=== PATIENT | male | born 1970 | race Caucasian/White ===

== ENCOUNTER 2021-04-04 07:08 | Emergency (ER) | payer MEDICAID ==
[~2021-04-04] VITALS: Ht 170.2 cm; Wt 75.4 kg
[2021-04-04 08:34] LABS: HEMATOCRIT. 30.3 % (42.0-52.0); HEMOGLOBIN. 10.3 g/dL (14.0-18.0); MEAN CORPUSCULAR VOLUME 79.7 fL (80.0-94.0); MEAN PLATELET VOLUME 7.7 fl (7.4-10.4); PLATELET 245 x1000/uL (130-400); RED BLOOD CELL COUNT 3.81 mill/uL (4.7-6.1); RED CELL DISTRIBUTION WIDTH 14.7 % (11.6-14.6)
[2021-04-04 08:41] LABS: CHLORIDE 88 mEq/L (98-107)
[2021-04-04 08:44] LABS: INR 1.1
[2021-04-04 09:17] LABS: PLATELET ESTIMATE NORMAL
[2021-04-04 09:59] LABS: CLARITY URINE CLEAR (CLEAR); COLOR URINE DARK YELLOW (YELLOW); KETONES URINE NEGATIVE (NEGATIVE); LEUKOCYTE ESTERASE URINE TRACE (NEGATIVE); NITRITE URINE NEGATIVE (NEGATIVE); OCCULT BLOOD URINE NEGATIVE (NEGATIVE); PROTEIN URINE NEGATIVE (NEGATIVE); SPECIFIC GRAVITY URINE 1.014 (1.005-1.030)
[2021-04-04] MEDS ORDERED: SODIUM BICARBONATE 4% (2.4MEQ) 5ML VIAL IV ONE (10:00)
[2021-04-04] MEDS ORDERED: LIDOCAINE HCL 1% 20ML VIAL (Pyxis) INJ ONE (10:00)
[2021-04-04 11:44] VITALS: BP 103/71
== END 2021-04-04 11:52 | disposition left against medical advice (07) ==
LOC: ER 07:08
DX: R18.8 Other ascites (principal); Z20.822 Contact with and (suspected) exposure to COVID-19
CPT/HCPCS: 36415; 49083; 80053; 81003; 85025; 85610; 87070; 87205; 87426; 89050; 99285; J3490; Z7610

== ENCOUNTER 2021-04-19 06:15 | Emergency (ER) | payer MEDICAID ==
[~2021-04-19] VITALS: Ht 170.2 cm; Wt 74.0 kg
[2021-04-19 07:34] LABS: HEMATOCRIT. 29.6 % (42.0-52.0); HEMOGLOBIN. 10.3 g/dL (14.0-18.0); MEAN CORPUSCULAR HEMOGLOBIN 26.7 pg (28.0-32.0); MEAN CORPUSCULAR VOLUME 76.6 fL (80.0-94.0); MEAN PLATELET VOLUME 6.6 fl (7.4-10.4); PLATELET 333 x1000/uL (130-400); RED BLOOD CELL COUNT 3.86 mill/uL (4.7-6.1); RED CELL DISTRIBUTION WIDTH 14.9 % (11.6-14.6)
[2021-04-19 07:40] LABS: CHLORIDE 91 mEq/L (98-107)
[2021-04-19 07:44] LABS: INR 1.1; PROTHROMBIN TIME 11.4 sec (9.6-11.0)
[2021-04-19] MEDS ORDERED: POTASSIUM CHLORIDE 20MEQ TABLET SR PO ONE (08:30)
[2021-04-19 09:55] LABS: PLATELET ESTIMATE NORMAL
[2021-04-19 13:31] VITALS: BP 110/77
== END 2021-04-19 13:34 | disposition home or self-care (01) ==
LOC: ER 06:15
DX: R18.8 Other ascites (principal); K74.60 Unspecified cirrhosis of liver; R94.31 Abnormal electrocardiogram [ECG] [EKG]
CPT/HCPCS: 36415; 49083; 80053; 85025; 85610; 87426; 93005; 99285; Z7610

== ENCOUNTER 2021-04-26 06:14 | Emergency (ER) | payer MEDICAID ==
[~2021-04-26] VITALS: Ht 170.2 cm; Wt 74.0 kg
[2021-04-26 08:14] LABS: EOSINOPHILS % 1.8 % (0.0-5.0); HEMATOCRIT. 28.6 % (42.0-52.0); HEMOGLOBIN. 9.6 g/dL (14.0-18.0); LYMPHOCYTES % 10.1 % (20.0-50.0); MEAN CORPUSCULAR HEMOGLOBIN 26.8 pg (28.0-32.0); MONOCYTES % 13.8 % (2.0-8.0); NEUTROPHILS % 73.3 % (40.0-76.0); PLATELET 224 x1000/uL (130-400); RED BLOOD CELL COUNT 3.57 mill/uL (4.7-6.1); RED CELL DISTRIBUTION WIDTH 15.5 % (11.6-14.6)
[2021-04-26 08:21] LABS: CHLORIDE 98 mEq/L (98-107)
[2021-04-26 08:26] LABS: INR 1.1; PROTHROMBIN TIME 11.4 sec (9.6-11.0)
[2021-04-26 08:27] LABS: ETHANOL BLOOD < 10 mg/dL
[2021-04-26] MEDS ORDERED: SODIUM BICARBONATE 4% (2.4MEQ) 5ML VIAL IV ONE (09:56)
[2021-04-26] MEDS ORDERED: LIDOCAINE HCL 1% 30ML VIAL (10MG/ML) ONE (09:56)
[2021-04-26 12:00] VITALS: BP 132/76
== END 2021-04-26 14:47 | disposition home or self-care (01) ==
LOC: ER 06:14
DX: R18.8 Other ascites (principal); K74.60 Unspecified cirrhosis of liver; D64.9 Anemia, unspecified; I10 Essential (primary) hypertension; Z00.00 Encounter for general adult medical examination without abnormal findings; Z20.822 Contact with and (suspected) exposure to COVID-19
CPT/HCPCS: 36415; 49083; 80053; 80320; 83690; 85025; 85610; 87426; 99285; J3490; Z7610; G0480